=== PATIENT | female | born 1990 | race Caucasian/White ===

== ENCOUNTER 2017-05-13 23:35 | Outpatient (CLI) | payer SELFPAY ==
[~2017-05-13] VITALS: Ht 154.9 cm; Wt 62.1 kg
[~2017-05-13 23:35] MED LIST: ONDA4TAB35 PO
[2017-05-14 00:11] VITALS: Ht 154.9 cm; Wt 62.1 kg
[2017-05-14 00:12] VITALS: BP 113/80; PULSE 69; RESP 20
[2017-05-14] MEDS ORDERED: ONDANSETRON 4 MG TAB PO ONE (00:30)
[2017-05-14 01:08] LABS: BASOPHILS % 0.2 % (0.0-2.0); EOSINOPHILS # 0.2 10^3/ul (0.0-0.5); EOSINOPHILS % 1.6 % (0.0-7.0); HEMATOCRIT 33.3 % (37.0-47.0); HEMOGLOBIN 11.1 g/dl (12.0-16.0); LYMPHOCYTES % 15.9 % (15.0-51.0); MEAN CORPUSCULAR HEMOGLOBIN 28.9 pg (29.0-33.0); MEAN CORPUSCULAR HGB CONC 33.3 g/dl (32.0-37.0); MEAN CORPUSCULAR VOLUME 86.7 fl (82.0-101.0); MEAN PLATELET VOLUME 12.2 fl (7.4-10.4); MONOCYTE # 0.7 10^3/ul (0.3-0.9); MONOCYTES % 5.7 % (0.0-11.0); NEUTROPHILS % 76.1 % (39.0-77.0); PLATELET COUNT 213 10^3/UL (140-415); RED BLOOD COUNT 3.84 10^6/ul (4.20-5.40); RED CELL DISTRIBUTION WIDTH 12.7 % (11.5-14.5); WHITE BLOOD COUNT 12.5 10^3/ul (4.8-10.8)
[2017-05-14 01:13] LABS: ADD UMIC NO; UR ASCORBIC ACID NEGATIVE (NEGATIVE); UR BILIRUBIN (Dip) NEGATIVE (NEGATIVE); UR BLOOD (Dip) NEGATIVE (NEGATIVE); UR CLARITY CLEAR (CLEAR); UR COLOR STRAW (YELLOW); UR GLUCOSE (Dip) NEGATIVE (NEGATIVE); UR KETONES (Dip) NEGATIVE (NEGATIVE); UR LEUKOCYTE ESTERASE (Dip) NEGATIVE Leu/ul (NEGATIVE); UR NITRITE (Dip) NEGATIVE (NEGATIVE); UR SPECIFIC GRAVITY (Dip) 1.004 (1.003-1.030); UR TOTAL PROTEIN (Dip) NEGATIVE (NEGATIVE); UR UROBILINOGEN (Dip) NEGATIVE (NEGATIVE)
[2017-05-14 01:22] LABS: CREATININE 0.47 mg/dl (0.44-1.00); POTASSIUM 3.8 mmol/L (3.5-5.1)
--- NOTE | 2017-05-14 01:58 | RADRPT ---
PROCEDURE: ULTRASOUND OBSTETRICAL CLINICAL INDICATION: 26-year-old female with pelvic pain for cervical length evaluation. TECHNIQUE: Multiple sonographic images of the pelvis were obtained. The images were reviewed on a PACS workstation. COMPARISON: No prior studies are available for comparison. FINDINGS: The cervix is closed with a length of 4.1 cm measured transvaginally. IMPRESSION: The cervix appears closed with a length of 4.1 cm. .Brian Daugherty MD, MD Date Time Electronically viewed and signed by .Brian Daugherty MD, on 05/14/2017 01:57 .M/
--- NOTE | 2017-05-14 03:56 | PN ---
Triage Information Date/Time Reason for visit: Abd/pelvic pain Weeks of Gestation 24 1/7 /Para Diabetes: none Hypertention: none Additional information 26Year-old with SIUP at 21 1/7 weeks presents with a chief complaint of nausea, vomiting and abdominal pain. She has been receiving her care with Dr. Lilly. She states good movement. She denies diarrhea, shortness of breath, chest pain, headache, visual changes, vaginal bleeding or LOF. Objective Vital Signs Date Time Temp Pulse Resp B/P Pulse Ox O2 Delivery O2 Flow Rate FiO2 05/14/17 00:12 98.2 69 20 113/80 Room Air Exam General: Patient appears well, alert and oriented, NAD, appropriate mood and affect ABD: gravid, soft, non-tender. Back: No CVA tenderness (B/L) LE: No clubbing, cyanosis, edema, thigh or calf tenderness bilaterally FHT: 135 bpm , moderate variability with acceleration, no deceleration-category I Contractions: None Results/Medications Result Diagram: 05/14/174405/14/1744 Results 24 hrs Laboratory Tests Test 05/14/17 00:25 05/14/17 00:45 Urine Color STRAW Urine Clarity CLEAR Urine pH 6.0 Urine Specific [place] 1.004 Urine Ketones NEGATIVE Urine Nitrite NEGATIVE Urine Bilirubin NEGATIVE Urine Urobilinogen NEGATIVE Urine Leukocyte Esterase NEGATIVE Urine Hemoglobin NEGATIVE Urine Glucose NEGATIVE Urine Total Protein NEGATIVE White Blood Count 12.5 H Red Blood Count 3.84 L Hemoglobin 11.1 L Hematocrit 33.3 L Mean Corpuscular Volume 86.7 Mean Corpuscular Hemoglobin 28.9 L Mean Corpuscular Hemoglobin Concent 33.3 Red Cell Distribution Width 12.7 Platelet Count 213 Mean Platelet Volume 12.2 H Neutrophils % 76.1 Lymphocytes % 15.9 Monocytes % 5.7 Eosinophils % 1.6 Basophils % 0.2 Nucleated Red Blood Cells % 0.0 Neutrophils # (Manual) 9.5 H Lymphocytes # 2.0 Monocytes # 0.7 Eosinophils # 0.2 Basophils # 0.0 Nucleated Red Blood Cells # 0.0 Sodium Level 138 Potassium Level 3.8 Chloride Level 101 Carbon Dioxide Level 24 Anion Gap 17 H Blood Urea Nitrogen 4 L Creatinine 0.47 Glucose Level 78 Calcium Level 9.0 Assessment/Plan 26Year-old with SIUP at 21 1/7 weeks presents with a chief complaint of nausea, vomiting and abdominal pain. FHR: No sign of metabolic acidosis- Category I CBC, BMP done which wnl. U/A was nml. US performed with CL of 4.1 cm. Zofran given. She had no further sx and was feeling well. Symptoms and sign of labor, preeclampsia, kick count discussed with patient, she voiced understanding. All of her questions answered. Patient was discharged home in stable condition with the appropriate discharge instructions provided. I would like patient to have close follow-up with her primary physician or outpatient clinic in 1-2 days or return to the ER for worsening symptoms or any other urgent concerns. MARIUM FABIAN May 14, 2017 03:56
== END 2017-05-14 02:40 | disposition home or self-care (01) ==
LOC: L-D 23:35 → OBT 23:35
PROVIDERS: ATTEND Obstetrics & Gynecology
DX: O26.892 Other specified pregnancy related conditions, second trimester (principal); O21.2 Late vomiting of pregnancy; Z3A.24 24 weeks gestation of pregnancy; R10.9 Unspecified abdominal pain
CPT/HCPCS: 76817; 80048; 81003; 85025; G0463